=== PATIENT | male | born 1970 | race Caucasian/White ===

== ENCOUNTER 2025-02-02 03:48 | Day surgery (SDC) | payer BC, SELFPAY ==
[2025-01-24 11:04] VITALS: BMI 27.3
[2025-02-02 08:42] VITALS: BP 131/83; PULSE 88; RESP 16; TEMP 36.2; O2SAT 99
[2025-02-02] MEDS: LACTATED RINGERS 1,000 ML 150 ML IV CONT (08:52)
--- NOTE | 2025-02-02 08:58 | WPDANESEPPF ---
Anes - Initial Pre Proc Eval Procedure: Operation Date: 02/02/25 09:30 Proposed Procedures p Screening Colonoscopy - Juancarlos Olivera DO Date/Time: 02/02/25 08:58 Surgeon: Juancarlos Olivera DO Pre Op Diagnosis: Screening for malignant neoplasm of colon Patient Data Age: 54 Gender: M Height: 1.93 m Weight: 100.9 kg Last Vital Signs Temp 97.1 F L 02/02/25 08:42 Pulse 88 02/02/25 08:42 Resp 16 02/02/25 08:42 BP 131/83 02/02/25 08:42 Pulse Ox 99 02/02/25 08:42 O2 Del Method Room Air 02/02/25 08:42 Allergies Allergy/AdvReac Type Severity Reaction Status Date / Time No Known Allergies Allergy Verified 02/02/25 08:40 Home Medications ?Medication ?Instructions ?Recorded ?Confirmed ?Type hydroxyzine HCl 25 mg tablet 25 mg PO DAILY PRN itching #60 tabs 12/15/24 02/02/25 Rx triamcinolone acetonide 0.1 % 1 applic topical BID #80 grams 12/15/24 02/02/25 Rx topical cream sildenafil 50 mg tablet (Viagra) 50 mg PO DAILY PRN sexual activity 01/11/25 01/24/25 Rx #30 tabs Patient hx anesthesia problems: none Family hx anesthesia problems: none Results Review: All pre-operative results and documents have been reviewed as part of the pre-operative evaluation. [facility] Past Medical History Medical History Erectile dysfunction Mixed hyperlipidemia Social History Social History Smoking status: Current every day smoker Tobacco type: e-cigarettes/vaping Alcohol intake: current Drinks per week: 25 Substance use type: does not use Living arrangements: alone Anes - Eval Final PreProcedure Day of Procedure 02/02/25 08:58 Patient weight: overweight Lungs: normal air movement Airway: Mallampati scale class II Neurological: alert and oriented Last oral intake: >/= 8 hours ASA classification: II Emergent: no Anesthetic plan: proceed Anesthesia type and monitoring: general GIVS and standard monitoring Results Review: All pre-operative results and documents have been reviewed as part of the pre-operative evaluation. Hyperlipidemia, diet controlled, ex smoker quit 2019 but does currently vape and did this am. Reports stable resp status. Informed Consent: The patient's anesthetic plan and its attendant risks and benefits were discussed with the patient/family/POA. Questions were solicited and answers provided to the satisfaction of the patient/family/POA.
--- NOTE | 2025-02-02 08:59 | P.HP_ITS ---
H&P: HPI History of Present Illness Date/Time: 02/02/25 08:59 Chief Complaint: Family history of colon cancer Narrative: This is a 54-year-old man who presents for his 1st colonoscopy. He has a family history of colon cancer in his father. He denies any hematochezia or melena. Review of Systems Review of Systems: All systems reviewed & are unremarkable except as noted in HPI and below Constitutional: Constitutional: Denies chills, Denies fever(s), Denies headache(s) and Denies weight loss Eyes: Eyes: Denies change in vision ENT: Denies dizziness, Denies headache(s), Denies neck mass and Denies throat swelling Cardiovascular: Cardiovascular: Denies chest pain, Denies lightheadedness and Denies dyspnea Respiratory: Respiratory: Denies cough, Denies dyspnea and Denies wheezing Gastrointestinal: Gastrointestinal: Denies abdominal pain, Denies change in bowel habits, Denies nausea and Denies vomiting Genitourinary: Genitourinary: Denies hematuria and Denies dysuria Musculoskeletal: Musculoskeletal: Reports as per HPI Integumentary/Breasts: Skin/Breast: Reports as per HPI Neurologic: Denies dizziness and Denies headache(s) Allergic/Immunologic: Allergic/Immunologic: Denies throat swelling and Denies wheezing PMF Past Medical History Medical History Erectile dysfunction Mixed hyperlipidemia Social History Social History Smoking status: Current every day smoker Tobacco type: e-cigarettes/vaping Alcohol intake: current Drinks per week: 25 Substance use type: does not use Living arrangements: alone Meds Home Medications and Allergies Home Medications ?Medication ?Instructions ?Recorded ?Confirmed ?Type hydroxyzine HCl 25 mg tablet 25 mg PO DAILY PRN itching #60 tabs 12/15/24 02/02/25 Rx triamcinolone acetonide 0.1 % 1 applic topical BID #80 grams 12/15/24 02/02/25 Rx topical cream sildenafil 50 mg tablet (Viagra) 50 mg PO DAILY PRN sexual activity 01/11/25 01/24/25 Rx #30 tabs Allergies Allergy/AdvReac Type Severity Reaction Status Date / Time No Known Allergies Allergy Verified 02/02/25 08:40 Vital Signs Vital Signs - 24 hr 02/02/25 08:42 Temperature 97.1 F L Pulse Rate 88 Respiratory Rate 16 Blood Pressure 131/83 Pulse Oximetry 99 Oxygen Delivery Room Air Exam Const: General: no acute distress and alert Orientation/consciousness: patient oriented x3 HENMT: Head: normocephalic and atraumatic Ears: hearing grossly normal bilaterally Face/Nose/Sinus: Normal nares present Mouth: Yes Normal oral and palatal mucosa present Eyes: Periorbital: periorbital findings normal Sclera: sclerae normal EO M: EOMs intact bilaterally Neck: Neck: normal visual inspection, no lymphadenopathy and trachea midline Chest: Chest palpation & inspection: normal inspection of the chest Resp: Effort & Inspection: normal respiratory effort Auscultation: clear to auscultation bilaterally Cardio: Jugular venous distension: no JVD Rate: regular rate Rhythm: regular rhythm Heart sounds: S1 normal heart sound present and S2 normal heart sound present Peripheral pulses: Peripheral pulses 2+ throughout GI: Inspection: normal to inspection GI Palp: Yes Soft to palpation, No Tenderness to palpation present (GI), No Guarding due to palpation present (GI) and No Rebound tenderness present Percussion: Yes normal to percussion Auscultation: normal bowel sounds : General: Yes no CVA tenderness Back/Spine/Pelvis: Back: no CVA tenderness Neuro: General: patient oriented x3, no focal motor deficits and CN's II-XI intact bilaterally Cognition (Neuro): normal cognition Speech: normal speech Motor exam (neuro): 5/5 motor strength present throughout Extrem: General: capillary refill normal and no clubbing, cyanosis or edema Assessment and Plan Assessment and plan (1) Screening for colorectal cancer: Code(s): Z12.11 - Encounter for screening for malignant neoplasm of colon; Z12.12 - Encounter for screening for malignant neoplasm of rectum Status: Acute Assessment and Plan: I have recommended colonoscopy. I have discussed the procedure, risks, benefits, and alternatives. Questions were answered. Patient is agreeable to proceed. (2) Family hx of colon cancer: Code(s): Z80.0 - Family history of malignant neoplasm of digestive organs Status: Acute
--- NOTE | 2025-02-02 09:35 | S_PTH ---
PATIENT: Jeff Smith LOC: [facility] U#:[id number] AGE/SX: 54/M ROOM: RE02/02/[address]: Juancarlos Olivera DO : 1970 BED: DIS: 02/02/2025 SPEC #: [id number] RECD: 02/02/25 10:18 STATUS: MARGARETH REDali #: [id number] RAÚL: 02/02/25 09:[address]: Juancarlos Olivera DEPT: [facility] Surgical RECD BY: Jesica Mckeon ENTERED: 02/02/25 10:18 SP TYPE: Surgical OTHR DR: Deshaun De Los Santos MD Tissues: A - Colon Polypectomy B - Colon Polypectomy Procedures: Hematoxylin and Eosin Stain Gross and Microscopic Level 4
[2025-02-02 09:38] VITALS: BP 105/69; PULSE 79; RESP 21; O2SAT 96
[2025-02-02 09:48] VITALS: BP 109/81; PULSE 85; RESP 20; O2SAT 94
[2025-02-02 10:03] VITALS: BP 116/67; PULSE 77; RESP 20; O2SAT 100
== END 2025-02-02 10:10 | disposition home or self-care (01) ==
PROVIDERS: PCP Family Medicine; Visit Provider Surgery
PROC: 0DJD8ZZ Inspection of Lower Intestinal Tract, Via Natural or Artificial Opening Endoscopic (ICD-10-PCS; CPT 45378; principal; 2025-02-02 09:30)
DX: Z12.11 Encounter for screening for malignant neoplasm of colon (principal); D12.3 Benign neoplasm of transverse colon; D12.8 Benign neoplasm of rectum; K63.5 Polyp of colon; E78.2 Mixed hyperlipidemia; N52.9 Male erectile dysfunction, unspecified; F17.290 Nicotine dependence, other tobacco product, uncomplicated; Z80.0 Family history of malignant neoplasm of digestive organs
CPT/HCPCS: 45385; 88305; J2003; J2704; J7120

== ENCOUNTER 2025-02-25 09:16 | Emergency (ER) | payer BC, SELFPAY ==
[2025-02-25 09:21] VITALS: BP 130/81; PULSE 105; RESP 18; TEMP 36.1; O2SAT 97
--- NOTE | 2025-02-25 09:27 | ED.EXTPRO ---
HPI - Extremity Problem General Chief complaint: Extremity Problem,Nontraumatic Stated complaint: RT Foot Pain Source: patient Mode of arrival: ambulatory Limitations: no limitations History of Present Illness HPI Narrative: Patient is a 54-year-old male who presents to the clinic with right toe pain that started 2 days ago. He has been taking [id number] medications, but has had minimal relief. He states that he has been eating a lot of red meat, drinking caffeine and alcohol. Denies any injury to toe or history of gout. Denies fever, body aches, chills, nausea, vomiting or diarrhea. Related Data Allergies Allergy/AdvReac Type Severity Reaction Status Date / Time No Known Allergies Allergy Verified 02/25/25 09:17 Review of Systems Review of Systems: CONSTITUTIONAL: Denies body aches, fever, chills EYES: Denies visual changes ENT: Denies rhinorrhea, congestion CARDIOVASCULAR: Denies chest pain, palpitations, or edema. RESPIRATORY: Denies cough or dyspnea. SKIN: Denies rash, itching, or wounds. MUSCULOSKELETAL: Reports right toe pain. NEUROLOGIC: Denies headache, numbness, tingling, or weakness. All systems reviewed & are unremarkable except as noted in HPI and below PMFSH Past Medical History Medical History Erectile dysfunction Mixed hyperlipidemia Social History Social History Smoking status: Current every day smoker Tobacco type: e-cigarettes/vaping Alcohol intake: current Drinks per week: 25 Substance use type: does not use Living arrangements: alone Comments At time of signature, I have reviewed and agree with nursing past medical, surgical, social and family history unless otherwise noted. Please see nursing chart for further information. There is no relevant family history pertinent to the presenting complaint. Exam Narrative: GENERAL: Well-appearing, well-nourished, and in no acute distress. HEAD: Normocephalic, atraumatic. NECK: Supple. CHEST: Speaks in full sentences. No respiratory distress. HEART: Regular rate and rhythm. Normal and equal peripheral pulses. EXTREMITIES: Right toe has normal strength and sensation, normal range of motion. Tender to palpation. Erythema noted to first MTP. Mild edema noted. No ecchymosis. No red streaking to foot or ankle. No open wounds. Alignment normal, pulse palpable and equal bilaterally, skin warm, dry, pink. Capillary refill less than 3 seconds. Distal sensation intact. SKIN: Warm, dry, no rash. NEURO: Alert and oriented x3. PSYCH: Normal mood and affect Course Course Level of Care: Express Care Visit Vital Signs Vital signs: Vital Signs Temperature 97.0 F L 02/25/25 09:21 Pulse Rate 105 H 02/25/25 09:21 Respiratory Rate 18 02/25/25 09:21 Blood Pressure 130/81 02/25/25 09:21 Pulse Oximetry 97 02/25/25 09:21 Oxygen Delivery Room Air 02/25/25 09:21 Temperature 97.0 F L 02/25/25 09:21 Pulse Rate 105 H 02/25/25 09:21 Respiratory Rate 18 02/25/25 09:21 Blood Pressure 130/81 02/25/25 09:21 Pulse Oximetry 97 02/25/25 09:21 Oxygen Delivery Room Air 02/25/25 09:21 Reviewed. MDM - Extremity (Nontraumatic) MDM Narrative Medical decision making narrative: Discussed physical exam findings. Colchicine and prednisone prescriptions given. Discussed with patient the need to limit purines in his diet. Advised supportive measures and signs/symptoms to go to the ER. Pt is appropriate for outpatient treatment and follow up. Differential Diagnosis Differential diagnosis: Likely gout, cellulitis and deep vein thrombosis of lower extremity Critical Care Time Critical Care Time Critical Care Time: No Discharge Plan Discharge Clinical Impression: Gout Qualifiers: Gout site: toe Gout etiology: unspecified cause Chronicity: acute Laterality: right Qualified Code(s): M10.9 - Gout, unspecified Patient Disposition: Home Condition: Stable Instructions: Gout (ED) Additional Instructions: Gout is a form of inflammatory arthritis that causes pain and swelling in your joints. A buildup of excess uric acid in your body causes gout. Your body naturally makes uric acid when it breaks down chemicals called purines found in certain foods and drinks. Your kidneys usually filter uric acid out of your blood. Gout symptoms come and go in episodes called flares or gout attacks. Gout attacks usually last a week or two. You might have some flares that last longer than others, and some might cause more severe symptoms. Between attacks, you might not experience any gout symptoms. Risks include: Parent/grandparent with gout Eating a lot of animal proteins ? especially animal flesh, shellfish and foods that contain organ meat. Drinking alcohol regularly. Taking a diuretic medication (water pills). Taking immunosuppressants. Take medication as directed Recommend low purine diet Follow up with primary care provider in 1 week Go to the ER for worsening symptoms or concerns Patient Language: Divehi Prescriptions: New prednisone 20 mg tablet 40 mg PO DAILY 5 Days Qty: 10 0RF colchicine 0.6 mg tablet 0.6 mg PO DAILY 7 Days Qty: 7 0RF No Action sildenafil [Viagra] 50 mg tablet 50 mg PO DAILY PRN (Reason: sexual activity) Qty: 30 1RF Rx Instructions: administer 30 minutes to 4 hours before activity on empty stomach Follow-up/Referrals: Deshaun De Los Santos MD [Primary Care Provider] - Time of Disposition: 09:34
== END 2025-02-25 09:42 | disposition home or self-care (01) ==
PROVIDERS: PCP Family Medicine
DX: M10.9 Gout, unspecified (principal); E78.2 Mixed hyperlipidemia; F17.290 Nicotine dependence, other tobacco product, uncomplicated
CPT/HCPCS: 99213; G0463